=== PATIENT | female | born 1955 | race African-American/Black ===

== ENCOUNTER → 2016-05-26 | Outpatient (CLI) | payer MEDICARE, OTHER ==
[~2016-05-26] MED LIST: BEDSIDE COMMODE1 MI1; COMMODE PAIL WI1 MIS; CYCL1TAB29 PO; CYCL5TAB PO; ENAL20TA PO; HYDR-3516 PO; LORA-361 PO; METH2.5T PO; MISC-289; OMEP20TA39 PO; PRAV40TA PO; PRED5TAB PO; QUADMIS; ROUNMIS; VITA400T2 PO; WALKER WHEELS/F1 MIS; ZOLO50TA PO
[2016-05-26 14:29] LABS: AUTOMATED NEUTROPHIL # 3.4 TH/MM3 (1.8-7.7); BASOPHIL # 0.1 TH/MM3 (0-0.2); BASOPHIL % 0.9 % (0.0-2.0); EOSINOPHIL # 0.1 TH/MM3 (0-0.4); EOSINOPHIL % 2.5 % (0.0-4.0); HEMATOCRIT 37.3 % (35.0-46.0); HEMO FLAGS DIFF FINAL; LYMPH % 34.4 % (9.0-44.0); MEAN CELL VOLUME 85.1 FL (80.0-100.0); MEAN CORPUSCULAR HEMOGLOBIN 28.2 PG (27.0-34.0); MEAN CORPUSCULAR HGB CONC 33.1 % (32.0-36.0); MONO % 3.1 % (0.0-8.0); NEUT % 59.1 % (16.0-70.0); PLATELET COUNT 250 TH/MM3 (150-450); RED BLOOD COUNT 4.39 MIL/MM3 (4.00-5.30); RED CELL DISTRIBUTION WIDTH 19.7 % (11.6-17.2); WHITE BLOOD COUNT 5.8 TH/MM3 (4.0-11.0)
[2016-05-26 14:50] LABS: ALT (GPT) 41 U/L (10-53); ANION GAP 3 MEQ/L (5-15); AST (GOT) 37 U/L (15-37); BICARBONATE 33.4 MEQ/L (21.0-32.0); BLOOD UREA NITROGEN 11 MG/DL (7-18); CHLORIDE 105 MEQ/L (98-107); GLOMERULAR FILTRATION RATE 91 ML/MIN (>89); GLUCOSE,FASTING 90 MG/DL (74-99); POTASSIUM 3.8 MEQ/L (3.5-5.1); SODIUM (NA) 141 MEQ/L (136-145)
[2016-05-26 14:51] LABS: WESTERGREN SEDIMENTATION RATE 41 mm/hr (0-30)
[2016-05-26 14:52] LABS: ALKALINE PHOSPHATASE 110 U/L (45-117); TOTAL BILIRUBIN ADULT 0.3 MG/DL (0.2-1.0)
== END ==
LOC: CLAB 14:09
PROVIDERS: ATTEND Internal Medicine Rheumatology
DX: I82.409 Acute embolism and thrombosis of unspecified deep veins of unspecified lower extremity (principal); M05.79 Rheumatoid arthritis with rheumatoid factor of multiple sites without organ or systems involvement; M17.0 Bilateral primary osteoarthritis of knee; Z79.52 Long term (current) use of systemic steroids
CPT/HCPCS: 36415; 80053; 85025; 85652; 86140

== ENCOUNTER 2016-06-05 08:38 | Emergency (ER) | payer OTHER, MEDICARE ==
[~2016-06-05] VITALS: Ht 175.3 cm; Wt 101.0 kg
[~2016-06-05 08:38] MED LIST changes: -CYCL1TAB29 PO; -HYDR-3516 PO; -METH2.5T PO; -MISC-289; -PRED5TAB PO
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
[2016-06-05 08:42] VITALS: BP 161/68; PULSE 100; RESP 18; TEMP 98.2
[2016-06-05] MEDS ORDERED: SODIUM CHLORIDE 0.9% FLUSH 5 ML FLUSH IVF PRN (08:45)
[2016-06-05] MEDS ORDERED: MORPHINE SULFATE 4 MG/ML INJ IV ONE (08:45)
[2016-06-05] MEDS ORDERED: ONDANSETRON HCL 4 MG/2 ML VIAL IV PUSH ONE (08:45)
[2016-06-05 08:51] VITALS: O2SAT 100
[2016-06-05 09:00] VITALS: BP 128/58; PULSE 101; RESP 21; TEMP 98; O2SAT 100
[2016-06-05 09:28] LABS: AUTOMATED NEUTROPHIL # 3.7 TH/MM3 (1.8-7.7); BASOPHIL % 0.6 % (0.0-2.0); EOSINOPHIL # 0.2 TH/MM3 (0-0.4); EOSINOPHIL % 2.8 % (0.0-4.0); HEMATOCRIT 36.2 % (35.0-46.0); HEMO FLAGS DIFF FINAL; LYMPH % 37.7 % (9.0-44.0); LYMPHOCYTE # 2.6 TH/MM3 (1.0-4.8); MEAN CELL VOLUME 86.5 FL (80.0-100.0); MEAN CORPUSCULAR HGB CONC 33.6 % (32.0-36.0); MONO % 4.6 % (0.0-8.0); NEUT % 54.3 % (16.0-70.0); PLATELET COUNT 214 TH/MM3 (150-450); RED BLOOD COUNT 4.18 MIL/MM3 (4.00-5.30); RED CELL DISTRIBUTION WIDTH 18.9 % (11.6-17.2); WHITE BLOOD COUNT 6.8 TH/MM3 (4.0-11.0)
[2016-06-05 09:47] LABS: APTT (PATIENT) 24.8 SEC (24.3-30.1); INTERNATIONAL NORMALIZED RATIO 0.9 RATIO; PROTHROMBIN TIME - PATIENT 10.3 SEC (9.8-11.6)
[2016-06-05 09:55] LABS: BICARBONATE 31.3 MEQ/L (21.0-32.0); POTASSIUM 3.5 MEQ/L (3.5-5.1)
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
[2016-06-05] MEDS ORDERED: IOHEXOL 350 MG/ML 10 ML VIAL (for RAD DIAG) IV ONE (10:41)
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
[2016-06-05] MEDS ORDERED: MORPHINE SULFATE 4 MG/ML INJ IV PUSH ONE (11:30)
[2016-06-07] MEDS ORDERED: HYDR-3516 PO (15:36)
[2016-06-07] MEDS ORDERED: CYCL1TAB29 PO (15:36)
[2016-06-07] MEDS ORDERED: MISC-289 ×2 (15:37→15:38)
[2016-06-07] MEDS ORDERED: LORA-361 PO (15:39)
[2016-06-07] MEDS ORDERED: CYCL5TAB PO (15:39)
[2016-06-07] MEDS ORDERED: PRED5TAB PO (15:52)
[2016-06-07] MEDS ORDERED: METH2.5T PO (15:52)
== END 2016-06-05 13:04 | disposition home or self-care (01) ==
LOC: NEPE 08:38
DX: S13.4XXA Sprain of ligaments of cervical spine, initial encounter (principal); V43.52XA Car driver injured in collision with other type car in traffic accident, initial encounter; Y93.9 Activity, unspecified; Y92.9 Unspecified place or not applicable; Y99.9 Unspecified external cause status
CPT/HCPCS: 70450; 71260; 72125; 74177; 80048; 85025; 85610; 85730; 86850; 86900; 86901; 96374; 96375; 96376; 99284; J2270; J2405; Q9967

== ENCOUNTER → 2016-08-19 | Outpatient (CLI) | payer MEDICARE, OTHER ==
[~2016-08-19] MED LIST changes: +CYCL1TAB29 PO; +HYDR-3516 PO; +METH2.5T PO; +MISC-289; +PRED5TAB PO
[2016-08-19 11:53] LABS: AUTOMATED NEUTROPHIL # 2.8 TH/MM3 (1.8-7.7); BASOPHIL % 0.8 % (0.0-2.0); EOSINOPHIL # 0.1 TH/MM3 (0-0.4); EOSINOPHIL % 2.6 % (0.0-4.0); HEMATOCRIT 38.2 % (35.0-46.0); HEMO FLAGS DIFF FINAL; LYMPH % 37.4 % (9.0-44.0); LYMPHOCYTE # 2.1 TH/MM3 (1.0-4.8); MEAN CELL VOLUME 92.2 FL (80.0-100.0); MEAN CORPUSCULAR HEMOGLOBIN 30.5 PG (27.0-34.0); NEUT % 51.2 % (16.0-70.0); PLATELET COUNT 278 TH/MM3 (150-450); RED BLOOD COUNT 4.14 MIL/MM3 (4.00-5.30); RED CELL DISTRIBUTION WIDTH 18.6 % (11.6-17.2); WHITE BLOOD COUNT 5.6 TH/MM3 (4.0-11.0)
[2016-08-19 12:19] LABS: RHEUMATOID FACTOR TRIGGER 29.3 IU/ML (0.0-14.9)
[2016-08-19 12:30] LABS: BLOOD, URINE NEG (NEG); COMMENT (UR) CULT NOT INDICATED; CULTURE IF INDICATED CULT NOT INDICATED; GLUCOSE,URINE NEG (NEG); KETONE, URINE NEG (NEG); NITRITE,URINE NEG (NEG); SQUAMOUS EPITHELIAL CELL URINE 1 /hpf (0-5); URINE COLOR YELLOW (YELLW/STRAW)
[2016-08-19 12:44] LABS: BLOOD UREA NITROGEN 13 MG/DL (7-18)
[2016-08-19 12:45] LABS: ALKALINE PHOSPHATASE 114 U/L (45-117); ALT (GPT) 36 U/L (10-53); ANION GAP 5 MEQ/L (5-15); AST (GOT) 28 U/L (15-37); BICARBONATE 31.8 MEQ/L (21.0-32.0); CHLORIDE 102 MEQ/L (98-107); GLOMERULAR FILTRATION RATE 95 ML/MIN (>89); GLUCOSE,FASTING 78 MG/DL (74-99); HDL CHOLESTEROL 95.7 MG/DL (40.0-60.0); LDL CHOLESTEROL 162 MG/DL (0-99); POTASSIUM 3.5 MEQ/L (3.5-5.1); SODIUM (NA) 139 MEQ/L (136-145); TOTAL BILIRUBIN ADULT 0.4 MG/DL (0.2-1.0)
[2016-08-19 12:58] LABS: MICRO ALBUMIN RANDOM URINE RAW 8.5 MG/L (0.0-30.0)
[2016-08-23 13:01] LABS: MITOGEN MINUS NIL RESULT >10.00 IU/mL (()); NIL RESULT 0.04 IU/mL (()); QUANTIFERON TB GOLD RESULT Negative (Negative)
== END ==
LOC: CLAB 10:59
PROVIDERS: ATTEND Family Medicine
DX: I10 Essential (primary) hypertension (principal); M06.9 Rheumatoid arthritis, unspecified; M25.512 Pain in left shoulder; E78.5 Hyperlipidemia, unspecified; E55.9 Vitamin D deficiency, unspecified
CPT/HCPCS: 36415; 80053; 80061; 81001; 82043; 82306; 82607; 82746; 84443; 84550; 85025; 86200; 86430; 86480

== ENCOUNTER 2017-02-15 14:04 | Emergency (ER) | payer MEDICARE, MEDICAID ==
[~2017-02-15] VITALS: Ht 175.3 cm; Wt 110.0 kg
[2017-02-15 14:30] VITALS: BP 128/58; PULSE 100; RESP 18; TEMP 98.7; O2SAT 100
[2017-02-15] MEDS ORDERED: FOLI800T PO (15:19)
[2017-02-15] MEDS ORDERED: ALLE10TA PO (15:23)
[2017-02-15] MEDS ORDERED: IBUPROFEN 600 MG TAB PO ONE (16:15)
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
[2017-02-15] MEDS ORDERED: IBUP-232 PO (17:42)
== END 2017-02-15 18:14 | disposition home or self-care (01) ==
LOC: PHED 14:04 → PHEFT 18:14
DX: S80.11XA Contusion of right lower leg, initial encounter (principal); S81.811A Laceration without foreign body, right lower leg, initial encounter; W22.03XA Walked into furniture, initial encounter
CPT/HCPCS: 73590; 99283

== ENCOUNTER → 2017-07-21 | Outpatient (CLI) | payer MEDICARE, MEDICAID ==
[~2017-07-21] MED LIST changes: -BEDSIDE COMMODE1 MI1; -COMMODE PAIL WI1 MIS; +CYCL10TA PO; -CYCL1TAB29 PO; -CYCL5TAB PO; +FOLI800T PO; -HYDR-3516 PO; +IBUP-232 PO; -LORA-361 PO; +LORA-650 PO; -MISC-289; +OMEP20TA30 PO; -OMEP20TA39 PO; -QUADMIS; -ROUNMIS; -VITA400T2 PO; -WALKER WHEELS/F1 MIS
[2017-07-21 11:50] LABS: AUTOMATED NEUTROPHIL # 2.6 TH/MM3 (1.8-7.7); BASOPHIL % 0.6 % (0.0-2.0); EOSINOPHIL # 0.1 TH/MM3 (0-0.4); EOSINOPHIL % 2.2 % (0.0-4.0); HEMOGLOBIN 11.9 GM/DL (11.6-15.3); LYMPH % 35.8 % (9.0-44.0); LYMPHOCYTE # 1.7 TH/MM3 (1.0-4.8); MEAN CORPUSCULAR HEMOGLOBIN 29.9 PG (27.0-34.0); MEAN CORPUSCULAR HGB CONC 32.1 % (32.0-36.0); MEAN PLATELET VOLUME 7.4 FL (7.0-11.0); MONO % 6.3 % (0.0-8.0); MONOCYTE # 0.3 TH/MM3 (0-0.9); NEUT % 55.1 % (16.0-70.0); PLATELET COUNT 268 TH/MM3 (150-450); RED BLOOD COUNT 3.98 MIL/MM3 (4.00-5.30); RED CELL DISTRIBUTION WIDTH 14.8 % (11.6-17.2); WHITE BLOOD COUNT 4.7 TH/MM3 (4.0-11.0)
[2017-07-21 12:09] LABS: RHEUMATOID FACTOR SCREEN POSITIVE (NEGATIVE)
[2017-07-21 12:11] LABS: ALBUMIN 3.3 GM/DL (3.4-5.0); AST (GOT) 24 U/L (15-37); BICARBONATE 31.5 MEQ/L (21.0-32.0); BLOOD UREA NITROGEN 9 MG/DL (7-18); CALCIUM 8.7 MG/DL (8.5-10.1); CHLORIDE 104 MEQ/L (98-107); CREATININE 0.77 MG/DL (0.50-1.00); GLOMERULAR FILTRATION RATE 92 ML/MIN (>89); GLUCOSE,FASTING 93 MG/DL (74-99); SODIUM (NA) 141 MEQ/L (136-145)
[2017-07-21 12:12] LABS: CHOLESTEROL 175 MG/DL (120-200); TRIGLYCERIDES 112 MG/DL (42-150)
[2017-07-21 12:17] LABS: BACTERIA, URINE OCC /hpf; BILIRUBIN, URINE NEG (NEG); BLOOD, URINE TRACE (NEG); GLUCOSE,URINE NEG (NEG); KETONE, URINE NEG (NEG); MUCUS URINE FEW /lpf (OCC); NITRITE,URINE NEG (NEG); PH, URINE 5.5 (5.0-8.5); SQUAMOUS EPITHELIAL CELL URINE 18 /hpf (0-5); TRICHOMONAS, URINE RARE; URINE COLOR YELLOW (YELLW/STRAW); URINE LEUKOCYTE ESTERASE LARGE (NEG)
[2017-07-21 12:39] LABS: ALKALINE PHOSPHATASE 139 U/L (45-117); ALT (GPT) 26 U/L (10-53); CHOLESTEROL/ HDL RATIO 3.01 RATIO; HDL CHOLESTEROL 58.1 MG/DL (40.0-60.0); LDL CHOLESTEROL 95 MG/DL (0-99); TOTAL BILIRUBIN ADULT 0.3 MG/DL (0.2-1.0); TOTAL PROTEIN 7.7 GM/DL (6.4-8.2)
== END ==
LOC: CLAB 11:04
PROVIDERS: ATTEND Family Medicine
DX: I10 Essential (primary) hypertension (principal); M06.9 Rheumatoid arthritis, unspecified; E78.5 Hyperlipidemia, unspecified; E55.9 Vitamin D deficiency, unspecified; R79.89 Other specified abnormal findings of blood chemistry; R53.83 Other fatigue
CPT/HCPCS: 36415; 80053; 80061; 81001; 82043; 82306; 82607; 84443; 85025; 86200; 86430; 87086

== ENCOUNTER → 2017-09-22 | Outpatient (CLI) | payer MEDICARE, MEDICAID ==
[2017-09-22 14:05] LABS: AUTOMATED NEUTROPHIL # 2.2 TH/MM3 (1.8-7.7); BASOPHIL % 0.6 % (0.0-2.0); EOSINOPHIL # 0.1 TH/MM3 (0-0.4); EOSINOPHIL % 3.1 % (0.0-4.0); HEMATOCRIT 37.1 % (35.0-46.0); LYMPH % 31.8 % (9.0-44.0); LYMPHOCYTE # 1.2 TH/MM3 (1.0-4.8); MEAN CELL VOLUME 90.4 FL (80.0-100.0); MEAN CORPUSCULAR HEMOGLOBIN 29.3 PG (27.0-34.0); MEAN CORPUSCULAR HGB CONC 32.4 % (32.0-36.0); MEAN PLATELET VOLUME 7.7 FL (7.0-11.0); MONO % 4.6 % (0.0-8.0); MONOCYTE # 0.2 TH/MM3 (0-0.9); NEUT % 59.9 % (16.0-70.0); PLATELET COUNT 256 TH/MM3 (150-450); RED BLOOD COUNT 4.11 MIL/MM3 (4.00-5.30); RED CELL DISTRIBUTION WIDTH 15.2 % (11.6-17.2); WHITE BLOOD COUNT 3.7 TH/MM3 (4.0-11.0)
[2017-09-22 14:17] LABS: RHEUMATOID FACTOR SCREEN POSITIVE (NEGATIVE)
[2017-09-22 14:20] LABS: ALBUMIN 3.4 GM/DL (3.4-5.0); ALT (GPT) 69 U/L (10-53); AST (GOT) 78 U/L (15-37); BICARBONATE 28.2 MEQ/L (21.0-32.0); BLOOD UREA NITROGEN 8 MG/DL (7-18); C-REACTIVE PROTEIN 0.68 MG/DL (0.00-0.30); CHLORIDE 104 MEQ/L (98-107); CREATININE 0.68 MG/DL (0.50-1.00); GLOMERULAR FILTRATION RATE 106 ML/MIN (>89); GLUCOSE,FASTING 108 MG/DL (74-99); SODIUM (NA) 142 MEQ/L (136-145)
[2017-09-22 14:22] LABS: ALKALINE PHOSPHATASE 138 U/L (45-117); TOTAL BILIRUBIN ADULT 0.4 MG/DL (0.2-1.0); TOTAL PROTEIN 7.5 GM/DL (6.4-8.2)
[2017-09-22 14:34] LABS: WESTERGREN SEDIMENTATION RATE 32 mm/hr (0-30)
[2017-09-22 16:08] LABS: AMORPHOUS SEDIMENT, URINE RARE; BACTERIA, URINE MANY /hpf; BILIRUBIN, URINE NEG (NEG); BLOOD, URINE NEG (NEG); GLUCOSE,URINE NEG (NEG); HYALINE CAST, URINE 2 /lpf (RARE); KETONE, URINE NEG (NEG); MUCUS URINE FEW /lpf (OCC); NITRITE,URINE NEG (NEG); PH, URINE 5.5 (5.0-8.5); SQUAMOUS EPITHELIAL CELL URINE 10 /hpf (0-5); URINE COLOR YELLOW (YELLW/STRAW); URINE LEUKOCYTE ESTERASE LARGE (NEG)
[2017-09-24 23:52] LABS: HEPATITIS B CORE TOTAL AB NONREACTIVE (NON-REACTVE)
[2017-09-26 16:19] LABS: MITOGEN MINUS NIL RESULT 9.77 IU/mL; NIL RESULT 0.03 IU/mL; QUANTIFERON TB GOLD + RESULT Negative (Negative); TB ANTIGEN MINUS NIL 0.01 IU/mL
== END ==
LOC: CLAB 13:04
DX: M19.90 Unspecified osteoarthritis, unspecified site (principal)
CPT/HCPCS: 36415; 80053; 81001; 85025; 85652; 86140; 86200; 86317; 86430; 86480; 86704; 86803; 87340

== ENCOUNTER 2018-04-11 12:55 | Observation (INO) ==
[2018-04-11] MEDS ORDERED: Morphine Inj 4 MG/ML Vial IV.PUSH ONE (14:04)
[2018-04-11 14:23] LABS: Baso % (Auto) 0.5 % (0.0-2.0); Eos # (Auto) 0.1 th/mm3 (0.0-0.4); Eos % (Auto) 2.2 % (0.0-4.0); Hematocrit 37.3 % (35.0-46.0); Hemoglobin 12.1 gm/dL (11.6-15.3); Lymph # (Auto) 1.3 th/mm3 (1.0-4.8); Mean Corpuscular HGB Conc 32.4 % (32.0-36.0); Mean Corpuscular Hemoglobin 28.6 pg (27.0-34.0); Mean Corpuscular Volume 88.3 fL (80.0-100.0); Mean Platelet Volume 7.3 fL (7.0-11.0); Mono # (Auto) 0.5 th/mm3 (0.0-0.9); Mono % (Auto) 10.7 % (0.0-8.0); Neut # (Auto) 2.8 th/mm3 (1.8-7.7); Neut % (Auto) 58.6 % (16.0-70.0); Platelet Count 244 th/mm3 (150-450); Red Blood Count 4.22 mil/mm3 (4.00-5.30); Red Cell Distribution Width 15.8 % (11.6-17.2); White Blood Count 4.8 th/mm3 (4.0-11.0)
--- NOTE | 2018-04-11 14:32 | ED ---
HPI General Chief Complaint: Chest Pain Stated Complaint: cardiac complaint Time Seen by Provider: 04/11/18 13:55 Source: patient, family and EMS Mode of arrival: EMS Limitations: no limitations History of Present Illness HPI narrative: Patient is a 62-year-old female presenting to the emergency department for evaluation of chest pain. Patient states it started 230 this morning, it was accompanied by shortness of breath. She states the pain lasted for 35-45 minutes. She states the pain is midsternal with radiation to the right chest wall and right arm. Pain started again at 1140 this morning, again accompanied by shortness of breath. Patient reports that she has been under increased stress lately. Patient reports her pain is 8 out of 10, aching, intermittent. No exacerbating or alleviating factors. Patient denies any nausea, vomiting, abdominal pain, dizziness, visual changes. She does report that she has been burping more frequently lately. Past medical history significant for hypertension, rheumatoid arthritis, GERD, hyperlipidemia, depression, vitamin D deficiency. Patient states she is allergic to aspirin, she states it causes abdominal pain. Related Data Home Medications Medication Instructions Recorded Confirmed cyanocobalamin (vitamin B-12) 1,000 mcg PO DAILY 04/11/18 04/11/18 [Vitamin B-12] enalapril maleate [Vasotec] 10 mg PO DAILY 04/11/18 04/11/18 ergocalciferol (vitamin D2) 50,000 unit PO QWEEK 04/11/18 04/11/18 folic acid 1 mg PO DAILY 04/11/18 04/11/18 loratadine [Claritin] 10 mg PO DAILY 04/11/18 04/11/18 omeprazole 20 mg PO BID 04/11/18 04/11/18 pravastatin 40 mg PO HS 04/11/18 04/11/18 prednisone 2.5 mg PO DAILY 04/11/18 04/11/18 sertraline [Zoloft] 50 mg PO DAILY 04/11/18 04/11/18 Allergies Allergy/AdvReac Type Severity Reaction Status Date / Time acetaminophen Allergy Severe PASSED OUT Unverified 02/15/17 15:15 hydrocodone Allergy Severe PASSED OUT Unverified 02/15/17 15:15 aspirin Allergy Flushing Verified 04/11/18 13:03 Review of Systems ROS: all other systems reviewed are negative PMFSH Medical History Medical History Back pain (Acute) Depression (Acute) GERD (gastroesophageal reflux disease) (Acute) Herpes (Acute) Hyperlipidemia (Acute) Hypertension (Acute) Rheumatoid arthritis (Acute) Vitamin D deficiency (Acute) Social History Social History Substance History: No History of Abuse Second Hand Smoke Exposure: No Smoking Status: Never smoker How Often Do You Have a Drink Containing Alcohol: Never Recent Out of Country Travel within the Last 8 Weeks: No Immunization History Tetanus Immunization: Unsure Exam Narrative Exam Narrative: GENERAL: Overweight, well-developed, alert -[place] female. Presenting in no acute distress. SKIN: Focused skin assessment warm/dry. HEAD: Atraumatic. Normocephalic. EYES: Pupils equal and round. No scleral icterus. No injection or drainage. ENT: No nasal bleeding or discharge. Mucous membranes pink and moist. NECK: Trachea midline. No JVD. CARDIOVASCULAR: Regular rate and rhythm. No murmur appreciated. RESPIRATORY: No accessory muscle use. Clear to auscultation. Breath sounds equal bilaterally. GASTROINTESTINAL: Abdomen soft, non-tender, nondistended. Hepatic and splenic margins not palpable. MUSCULOSKELETAL: No obvious deformities. No clubbing. No cyanosis. No edema. NEUROLOGICAL: Awake and alert. No obvious cranial nerve deficits. Motor grossly within normal limits. Normal speech. PSYCHIATRIC: Appropriate mood and affect; insight and judgment normal. Course Initial Documented Vital Signs Temperature 98.7 F 04/11/18 13:20 Pulse Rate 72 04/11/18 13:20 Respiratory Rate 18 04/11/18 13:20 Blood Pressure 196/81 H 04/11/18 13:20 Pulse Oximetry 100 04/11/18 13:20 Last Documented Vital Signs Temperature 98.3 F 04/11/18 13:45 Pulse Rate 69 04/11/18 15:24 Respiratory Rate 18 04/11/18 15:24 Blood Pressure 139/67 04/11/18 15:24 Pulse Oximetry 96 04/11/18 15:24 Medical Decision Making MDM Narrative Medical decision making narrative: Patient presented for evaluation of chest pain. Patient is hypertensive on arrival, she has not taken any of her normal morning medications. Labs and imaging ordered and pending. Patient was placed on O2 at 2 L, she will be given morphine and nitroglycerin paste. Initial EKG was reviewed with my attending physician, shows normal sinus rhythm. Labs reviewed, no acute findings, specifically cardiac enzymes are negative x1 set. Chest x-ray shows elected to the left lung base, cannot completely exclude consolidation however patient has no elevated white count, she is afebrile and is clinically not showing any signs of infection. Discussed with my attending physician. Patient was placed in chest pain center to have enzymes trended, serial EKGs and possible stress test. Patient is agreeable to stay. She is currently resting comfortably with her family at bedside. Her blood pressure had trended down, she has Nitropaste to her anterior chest wall. Medical Screen Exam Complete: Yes Emergency Medical Condition: Yes Differential Diagnosis Differential Diagnosis: ACS vs USA vs GERD vs metabolic abnormality vs arrythmia vs anxiety vs other Medical Records Medical records reviewed: Yes I reviewed the patient's medical records. Lab Data Result diagrams: 04/11/18 14:05 04/11/18 14:05 Lab Results 04/11/18 04/11/18 04/11/18 Range/Units 14:05 14:05 14:05 WBC 4.8 (4.0-11.0) th/mm3 RBC 4.22 (4.00-5.30) mil/mm3 Hgb 12.1 (11.6-15.3) gm/dL Hct 37.3 (35.0-46.0) % MCV 88.3 (80.0-100.0) fL MCH 28.6 (27.0-34.0) pg MCHC 32.4 (32.0-36.0) % RDW 15.8 (11.6-17.2) % Plt Count 244 (150-450) th/mm3 MPV 7.3 (7.0-11.0) fL Neut % (Auto) 58.6 (16.0-70.0) % Lymph % (Auto) 28.0 (9.0-44.0) % [place] % (Auto) 10.7 H (0.0-8.0) % Eos % (Auto) 2.2 (0.0-4.0) % Baso % (Auto) 0.5 (0.0-2.0) % Neut # (Auto) 2.8 (1.8-7.7) th/mm3 Lymph # (Auto) 1.3 (1.0-4.8) th/mm3 [place] # (Auto) 0.5 (0.0-0.9) th/mm3 Eos # (Auto) 0.1 (0.0-0.4) th/mm3 Baso # (Auto) 0.0 (0.0-0.2) th/mm3 WBC Differential . Differential Comment Auto diff final PT 10.3 (9.8-11.6) sec INR 1.0 Ratio APTT 27.3 (23.4-31.7) sec Sodium 143 (136-145) meq/L Potassium 3.6 (3.5-5.1) meq/L Chloride 107 (98-107) meq/L Carbon Dioxide 30.0 (21.0-32.0) meq/L Anion Gap 6 (5-15) meq/L BUN 8 (7-18) mg/dL Creatinine 0.68 (0.50-1.00) mg/dL Estimated GFR Greater than 89 (>89) mL/min Random Glucose 96 (74-106) mg/dL Calcium 9.3 (8.5-10.1) mg/dL Magnesium (1.5-2.5) mg/dL Total Bilirubin 0.3 (0.2-1.0) mg/dL AST 28 (15-37) U/L ALT 28 (10-53) U/L Alkaline Phosphatase 127 H (45-117) U/L Total Creatine Kinase 71 (26-192) U/L Troponin I Less than 0.02 L (0.02-0.05) ng/mL Total Protein 8.6 H (6.4-8.2) g/dL Albumin 3.5 (3.4-5.0) g/dL Lipase 147 (73-393) U/L /18/18 Range/Units 14:05 WBC (4.0-11.0) th/mm3 RBC (4.00-5.30) mil/mm3 Hgb (11.6-15.3) gm/dL Hct (35.0-46.0) % MCV (80.0-100.0) fL MCH (27.0-34.0) pg MCHC (32.0-36.0) % RDW (11.6-17.2) % Plt Count (150-450) th/mm3 MPV (7.0-11.0) fL Neut % (Auto) (16.0-70.0) % Lymph % (Auto) (9.0-44.0) % [place] % (Auto) (0.0-8.0) % Eos % (Auto) (0.0-4.0) % Baso % (Auto) (0.0-2.0) % Neut # (Auto) (1.8-7.7) th/mm3 Lymph # (Auto) (1.0-4.8) th/mm3 [place] # (Auto) (0.0-0.9) th/mm3 Eos # (Auto) (0.0-0.4) th/mm3 Baso # (Auto) (0.0-0.2) th/mm3 WBC Differential Differential Comment PT (9.8-11.6) sec INR Ratio APTT (23.4-31.7) sec Sodium (136-145) meq/L Potassium (3.5-5.1) meq/L Chloride (98-107) meq/L Carbon Dioxide (21.0-32.0) meq/L Anion Gap (5-15) meq/L BUN (7-18) mg/dL Creatinine (0.50-1.00) mg/dL Estimated GFR (>89) mL/min Random Glucose (74-106) mg/dL Calcium (8.5-10.1) mg/dL Magnesium 1.9 (1.5-2.5) mg/dL Total Bilirubin (0.2-1.0) mg/dL AST (15-37) U/L ALT (10-53) U/L Alkaline Phosphatase (45-117) U/L Total Creatine Kinase (26-192) U/L Troponin I (0.02-0.05) ng/mL Total Protein (6.4-8.2) g/dL Albumin (3.4-5.0) g/dL Lipase (73-393) U/L Imaging Data Radiologist's impression: Chest X-Ray 04/11/18 14:04 CONCLUSION: Underinflation with mild opacity at the left base that is favored to represent subsegmental atelectasis and density relating to overlying soft tissues. However , cannot confidently exclude mild airspace consolidation. Good inspiratory formal PA and lateral views of the chest could help differentiate, if needed clinically. Discharge Plan Discharge Disposition Patient Disposition: ED Admit(ED Internal Use Only) Discharge Condition Condition: Stable Discharge Order Discharge Orders: ED Use Only Admit Order (Routine); Ordered 04/11/18 Ordered By: Teodora Hale Discharge Details Diagnosis: Chest pain Physicians Team ED Provider: Rosalinda Zendejas ED Midlevel Provider: Teodora Hale Primary Care Provider: Som Shah III Attending Provider: Sabiha Hines Status ED Status: Admitted Observation Patient
[2018-04-11 14:43] LABS: Activated Partial Thrombo Time 27.3 sec (23.4-31.7); Prothrombin Time 10.3 sec (9.8-11.6)
[2018-04-11 14:48] LABS: Alanine Aminotransferase 28 U/L (10-53); Albumin 3.5 g/dL (3.4-5.0); Anion Gap 6 meq/L (5-15); Aspartate Aminotransferase 28 U/L (15-37); Blood Urea Nitrogen 8 mg/dL (7-18); Calcium 9.3 mg/dL (8.5-10.1); Chloride 107 meq/L (98-107); Glomerular Filtration Rate Greater Than 89 mL/min (>89); Glucose,Random 96 mg/dL (74-106); Lipase 147 U/L (73-393); Potassium 3.6 meq/L (3.5-5.1); Sodium 143 meq/L (136-145)
[2018-04-11 14:53] LABS: Alkaline Phosphatase 127 U/L (45-117); Total Protein 8.6 g/dL (6.4-8.2)
--- NOTE | 2018-04-11 14:53 | XR ---
EXAM DATE: 04/11/2018 2:33 PM EST AGE/SEX: 62 years / Female INDICATIONS: Chest pain and shortness of breath since 2am this morning CLINICAL DATA: This is the patient's initial encounter. Patient reports that signs and symptoms have been present for 1 day and indicates a pain score of Nonresponsive. MEDICAL/SURGICAL HISTORY: Hypertension. arthritis section. [place] [facility] [place]. . FINDINGS: Portable AP view of the chest demonstrates a normal-sized cardiac silhouette. Lungs are mildly underi nflated with mild subsegmental atelectasis at the right lung base. There is mild hazy increased opaci ty at the left lower lung zone with partial obscuration the left hemidiaphragm. No pleural effusion o r pneumothorax is identified. Bones and soft tissues demonstrate no acute finding. CONCLUSION: Underinflation with mild opacity at the left base that is favored to represent subsegmental atelectas is and density relating to overlying soft tissues. However, cannot confidently exclude mild airspace consolidation. Good inspiratory formal PA and lateral views of the chest could help differentiate, if needed clinically. Electronically signed by: Hamilton Lopez MD Board Certified Radiologist 04/11/2018 2:52 PM EST
[2018-04-11 15:01] LABS: Creatine Kinase 71 U/L (26-192)
--- NOTE | 2018-04-11 16:48 | P.HPCA ---
History of Present Illness Primary Care Physician: Som Shah III, MD Chief Complaint: Chest pain History of Present Illness: This is a 62-year-old female with history of hypertension, hyperlipidemia, rheumatoid arthritis, and GERD that presents to ED via private vehicle with her family with complaint of chest discomfort he states that she was already awake when it began. It started around 230 this morning. Right-sided. Sharp pain. Lasted 30-45 minutes. Rated as 8 out of 10. Denies shortness of breath. Denies nausea or vomiting. Denies diaphoresis. States she has cardiac evaluations in the past. Last stress test here was a Lexiscan in 2013 that was nonischemic. She believes she had a another stress test at [facility] either 2016 or 2017 that was normal. States is never had a cardiac catheterization. Patient has history of rheumatoid arthritis. She has been running out of her prednisone which she should be taking daily but states that her PCP would not refill it as she is about to have a new PCP. So she has recently been trying to stretch out the remaining prednisone that she has, she has not been taking it daily. She did not take her blood pressure medicine this morning. History of rheumatoid arthritis, hypertension, and hyperlipidemia. Denies diabetes and CAD. Patient denies allergy to Tylenol or 2 hydrocodone. States aspirin causes GI upset. She states that her mother had some form of heart issues really is not sure. Mother lived to be 85. She is a non-smoker. - Diagnosis (1) Chest pain (2) Hypertension (3) Hyperlipidemia (4) Rheumatoid arthritis Review of Systems General: Patient denies fevers, chills, and recent travel. HEENT: Patient denies headache, sore throat, difficulty swallowing. Cardiovascular: Has the chest discomfort as mentioned above. Denies sensation of heart beating rapidly or irregularly. No syncope. Denies diaphoresis. Respiratory: Denies shortness of breath or inspirational chest discomfort. Denies coughing wheezing or hemoptysis. GI: Patient denies nausea, vomiting, diarrhea, abdominal pain, bloody stools. Musculoskeletal: Chronic joint pain. Patient denies joint pain. Denies calf pain or edema. Neurovascular: Patient denies numbness, tingling, weakness in extremities. Denies headache. Endocrine: Denies polyuria and polydipsia. Hematologic: Denies easy bruising. Skin: Denies rash or itching. PMFSH - History History Provided By: Patient - Medical History Medical History: Medical History (Last Reviewed 04/11/18 @ 14:31 by PROSPER Bradley) Back pain Depression GERD (gastroesophageal reflux disease) Herpes Hyperlipidemia Hypertension Rheumatoid arthritis Vitamin D deficiency - Tobacco History Second Hand Smoke Exposure: No Smoking Status: Never smoker - Alcohol History How Often Do You Have a Drink Containing Alcohol: Never - Substance Use History Substance History: No History of Abuse - Travel History Recent Travel Out of the Country Within the Last 8 Weeks: No - Immunization History Tetanus Immunization: Unsure Medications and Allergies Active Medications: Active Medications Sodium Chloride (Ns Flush) 2 ml IV.FLUSH UNSCH PRN PRN Reason: FLUSH AFTER USING IV ACCESS Allergies Allergy/AdvReac Type Severity Reaction Status Date / Time acetaminophen Allergy Severe PASSED OUT Unverified 02/15/17 15:15 hydrocodone Allergy Severe PASSED OUT Unverified 02/15/17 15:15 aspirin Allergy Flushing Verified 04/11/18 13:03 Home Medications Medication Instructions Recorded Confirmed Type cyanocobalamin (vitamin B-12) 1,000 mcg PO DAILY 04/11/18 04/11/18 History [Vitamin B-12] enalapril maleate [Vasotec] 10 mg PO DAILY 04/11/18 04/11/18 History ergocalciferol (vitamin D2) 50,000 unit PO QWEEK 04/11/18 04/11/18 History folic acid 1 mg PO DAILY 04/11/18 04/11/18 History loratadine [Claritin] 10 mg PO DAILY 04/11/18 04/11/18 History omeprazole 20 mg PO BID 04/11/18 04/11/18 History pravastatin 40 mg PO HS 04/11/18 04/11/18 History prednisone 2.5 mg PO DAILY 04/11/18 04/11/18 History sertraline [Zoloft] 50 mg PO DAILY 04/11/18 04/11/18 History Exam Vital signs: Vital Signs 04/11/18 13:20 04/11/18 13:43 04/11/18 13:45 Temperature 98.7 F 98.7 F 98.3 F Pulse Rate 72 72 72 Respiratory Rate 18 19 19 Blood Pressure 196/81 H 196/81 H 196/81 H Pulse Oximetry 100 100 100 04/11/18 15:24 Temperature Pulse Rate 69 Respiratory Rate 18 Blood Pressure 139/67 Pulse Oximetry 96 Intake & Output 04/10/18 04/11/18 04/11/18 18:59 06:59 18:59 Weight 90.718 kg Narrative: GENERAL: This is a well-nourished, well-developed patient, in no apparent distress. Patient speaks in clear complete sentences. Patient is pleasant. HEENT: Head is atraumatic and normocephalic. Neck is supple without lymphadenopathy and trachea is midline. No JVD or carotid bruits. CARDIOVASCULAR: Regular rate and rhythm without murmurs, gallops, or rubs. RESPIRATORY: Clear to auscultation. Breath sounds equal bilaterally. No wheezes , rales, or rhonchi. Right chest wall is very tender to palpate and is worsened with movement of the torso. This reproduces the discomfort that she had. No use of accessory muscles. GASTROINTESTINAL: Abdomen is nontender, nondistended. Abdomen soft. No obvious pulsatile mass or bruit. No CVA tenderness. Strong femoral pulses bilaterally. Normal bowel sounds in all quadrants. MUSCULOSKELETAL: Patient is moving upper and lower extremities freely. No calf tenderness or edema, no Homans sign. Strong pulses in upper and lower extremities. NEUROLOGICAL: Patient is alert and oriented. Cranial nerves 2-12 are grossly intact. No focal deficits and speech is clear. SKIN: No rash and turgor is normal. Results 04/11/18 14:05 04/11/18 14:05 Cardiac Enzymes 04/11/18 Range/Units 14:05 AST 28 (15-37) U/L Troponin I Less than 0.02 L (0.02-0.05) ng/mL Coagulation 04/11/18 Range/Units 14:05 PT 10.3 (9.8-11.6) sec APTT 27.3 (23.4-31.7) sec CBC 04/11/18 Range/Units 14:05 WBC 4.8 (4.0-11.0) th/mm3 RBC 4.22 (4.00-5.30) mil/mm3 Hgb 12.1 (11.6-15.3) gm/dL Hct 37.3 (35.0-46.0) % Plt Count 244 (150-450) th/mm3 Neut # (Auto) 2.8 (1.8-7.7) th/mm3 Lymph # (Auto) 1.3 (1.0-4.8) th/mm3 [place] # (Auto) 0.5 (0.0-0.9) th/mm3 Eos # (Auto) 0.1 (0.0-0.4) th/mm3 Baso # (Auto) 0.0 (0.0-0.2) th/mm3 Comprehensive Metabolic Panel 04/11/18 Range/Units 14:05 Sodium 143 (136-145) meq/L Potassium 3.6 (3.5-5.1) meq/L Chloride 107 (98-107) meq/L Carbon Dioxide 30.0 (21.0-32.0) meq/L BUN 8 (7-18) mg/dL Creatinine 0.68 (0.50-1.00) mg/dL Calcium 9.3 (8.5-10.1) mg/dL AST 28 (15-37) U/L ALT 28 (10-53) U/L Alkaline Phosphatase 127 H (45-117) U/L Total Protein 8.6 H (6.4-8.2) g/dL Albumin 3.5 (3.4-5.0) g/dL Intake and Output 04/11/18 04/11/18 04/11/18 06:59 14:59 22:59 Other: Weight 90.718 kg Patient Weight 04/12/18 06:59 Weight 90.718 kg - Imaging and Cardiology Imaging: Impressions Chest X-Ray 04/11/18 14:04 CONCLUSION: Underinflation with mild opacity at the left base that is favored to represent subsegmental atelectasis and density relating to overlying soft tissues. However , cannot confidently exclude mild airspace consolidation. Good inspiratory formal PA and lateral views of the chest could help differentiate, if needed clinically. EKG interpretations - EKG EKG shows: sinus rhythm (Initial EKG is sinus rhythm rate of [address] segment depressions or elevations.) Caprini VTE Risk Assessment Caprini VTE Risk Assessment: Moderate/High Risk (score >= 2) Caprini Risk Assessment Model: Point Value = 1 Point Value = 2 Point Value = 3 Point Value = 5 Age 41-60 Minor surgery BMI > 25 kg/m2 Swollen legs Varicose veins or History of unexplained or recurrent spontaneous Oral contraceptives or hormone replacement Sepsis (< 1 month) Serious lung disease, including pneumonia (< 1 month) Abnormal pulmonary function Acute myocardial infarction Congestive heart failure (< 1 month) History of inflammatory bowel disease Medical patient at bed rest Age 61-74 Arthroscopic surgery Major open surgery (> 45 min) Laparoscopic surgery (> 45 min) Malignancy Confined to bed (> 72 hours) Immobilizing plaster cast Central venous access Age >= 75 History of VTE Family history of VTE Factor V Leiden Prothrombin [id number] Lupus anticoagulant Anticardiolipin antibodies Elevated serum homocysteine Heparin-induced thrombocytopenia Other congenital or acquired thrombophilia Stroke (< 1 month) Elective arthroplasty Hip, pelvis, or leg fracture Acute spinal cord injury (< 1 month) Prophylaxis Regimen: Total Risk Factor Score Risk Level Prophylaxis Regimen 0-1 Low Early ambulation 2 Moderate Order ONE of the following: *Sequential Compression Device (SCD) *Heparin 5000 units SQ BID 3-4 Higher Order ONE of the following medications: *Heparin 5000 units SQ TID *Enoxaparin/Lovenox 40 mg SQ daily (WT < 150 kg, CrCl > 30 mL/min) *Enoxaparin/Lovenox 30 mg SQ daily (WT < 150 kg, CrCl > 10-29 mL/min) *Enoxaparin/Lovenox 30 mg SQ BID (WT < 150 kg, CrCl > 30 mL/min) AND/OR *Sequential Compression Device (SCD) 5 or more Highest Order ONE of the following medications: *Heparin 5000 units SQ TID (Preferred with Epidurals) *Enoxaparin/Lovenox 40 mg SQ daily (WT < 150 kg, CrCl > 30 mL/min) *Enoxaparin/Lovenox 30 mg SQ daily (WT < 150 kg, CrCl > 10-29 mL/min) *Enoxaparin/Lovenox 30 mg SQ BID (WT < 150 kg, CrCl > 30 mL/min) AND *Sequential Compression Device (SCD) Assessment and Plan - Assessment (1) Chest pain Code(s): R07.9 - Chest pain, unspecified Status: Acute (2) Hypertension Code(s): I10 - Essential (primary) hypertension Status: Acute (3) Hyperlipidemia Code(s): E78.5 - Hyperlipidemia, unspecified Status: Acute (4) Rheumatoid arthritis Code(s): M06.9 - Rheumatoid arthritis, unspecified Status: Acute - Plan * Chest pain: Patient will continue to have serial cardiac enzymes and EKGs for ruling out purposes. She will be seen by Dr. Hines of cardiology and the chest pain center. Symptoms seem atypical. However she does have risk factors , patient likely to have stress test in the morning which would be a Lexiscan as she would not build walk on a treadmill. She would be discharged home if her stress test is nonischemic with instructions to follow-up with her PCP. * Hypertension: Patient did not take her medicine this morning. This will be restarted. * Hyperlipidemia: Continue medication. * Rheumatoid arthritis: Patient advised to follow-up with PCP to be restarted on medication for rheumatoid arthritis. She may need follow-up with a die operator. Patient is stable at this time. She is agreeable to this plan. (1) Chest pain Qualifiers: Chest pain type: unspecified Qualified Code(s): R07.9 - Chest pain, unspecified
--- NOTE | 2018-04-11 17:56 | XR ---
EXAM DATE: 04/11/2018 5:53 PM EST AGE/SEX: 62 years / Female INDICATIONS: . Chest pain. CLINICAL DATA: This is the patient's subsequent encounter. Patient reports that signs and symptoms h ave been present for 1 day and indicates a pain score of 4/10. MEDICAL/SURGICAL HISTORY: . Hypertension. Arthritis. . section. COMPARISON: No prior exams available for comparison. FINDINGS: AP and lateral views of the chest demonstrate the lungs to be symmetrically aerated without evidence of mass, infiltrate or effusion. The cardiomediastinal contours are unremarkable. Osseous structure s are intact. CONCLUSION: No acute cardiopulmonary disease. Electronically signed by: Tristin Saeed MD Board Certified Radiologist 04/11/2018 5:55 PM EST
[2018-04-11] MEDS: Acetaminophen 500 MG Tablet PO PRN (20:27)
[2018-04-11 21:14] LABS: Creatine Kinase 74 U/L (26-192)
[2018-04-11 23:49] LABS: Creatine Kinase 64 U/L (26-192)
[2018-04-12 00:11] VITALS: RESP 16
[2018-04-12] MEDS: Acetaminophen 500 MG Tablet PO PRN (05:59)
--- NOTE | 2018-04-12 08:21 | P.PNCA ---
Subjective Interval history: No further chest pain. Offers no complaints. Medications and Allergies Active Medications: Active Medications Acetaminophen (Tylenol) 500 mg PO Q6H PRN PRN Reason: pain scale 1-5 Last Admin: 04/12/18 05:59 Dose: 500 mg Hydrocodone Bitart/Acetaminophen ([place] 7.5/325) 1 tab PO Q6H PRN PRN Reason: pain scale 6-10 Clonidine HCl (Catapres) 0.1 mg PO Q6H PRN PRN Reason: SBP >165 OR DBP > 110 Enalapril Maleate (Vasotec) 10 mg PO DAILY [facility] Last Admin: 04/11/18 18:12 Dose: 10 mg Folic Acid (Folic Acid) 1 mg PO DAILY [facility] Loratadine (Claritin) 10 mg PO DAILY [facility] Ondansetron HCl (Zofran Inj) 4 mg IV.PUSH Q6H PRN PRN Reason: NAUSEA Pantoprazole Sodium (Protonix) 40 mg PO DAILY [facility] Last Admin: 04/11/18 18:12 Dose: 40 mg Pravastatin Sodium (Pravachol) 40 mg PO HS [facility] Last Admin: 04/11/18 20:27 Dose: 40 mg Prednisone (Deltasone) 2.5 mg PO DAILY [facility] Sertraline HCl (Zoloft) 50 mg PO DAILY [facility] Sodium Chloride (Ns Flush) 2 ml IV.FLUSH BID [facility] Last Admin: 04/11/18 20:27 Dose: 2 ml Sodium Chloride (Ns Flush) 2 ml IV.FLUSH PRN PRN PRN Reason: FLUSH AFTER USING IV ACCESS Allergies Allergy/AdvReac Type Severity Reaction Status Date / Time acetaminophen Allergy Severe PASSED OUT Unverified 02/15/17 15:15 hydrocodone Allergy Severe PASSED OUT Unverified 02/15/17 15:15 aspirin Allergy Flushing Verified 04/11/18 13:03 Home Medications Medication Instructions Recorded Confirmed Type cyanocobalamin (vitamin B-12) 1,000 mcg PO DAILY 04/11/18 04/11/18 History [Vitamin B-12] enalapril maleate [Vasotec] 10 mg PO DAILY 04/11/18 04/11/18 History ergocalciferol (vitamin D2) 50,000 unit PO QWEEK 04/11/18 04/11/18 History folic acid 1 mg PO DAILY 04/11/18 04/11/18 History loratadine [Claritin] 10 mg PO DAILY 04/11/18 04/11/18 History omeprazole 20 mg PO BID 04/11/18 04/11/18 History pravastatin 40 mg PO HS 04/11/18 04/11/18 History prednisone 2.5 mg PO DAILY 04/11/18 04/11/18 History sertraline [Zoloft] 50 mg PO DAILY 04/11/18 04/11/18 History Physical Exam Vital signs: Vital Signs 04/11/18 13:20 04/11/18 13:43 04/11/18 13:45 Temperature 98.7 F 98.7 F 98.3 F Pulse Rate 72 72 72 Respiratory Rate 18 19 19 Blood Pressure 196/81 H 196/81 H 196/81 H Pulse Oximetry 100 100 100 04/11/18 15:24 04/11/18 17:49 04/11/18 20:00 Temperature 97.7 F 98.4 F Pulse Rate 69 78 87 Respiratory Rate 18 16 14 Blood Pressure 139/67 134/66 119/55 L Pulse Oximetry 96 98 99 04/11/18 21:00 04/11/18 21:01 04/12/18 00:00 Temperature 98.3 F Pulse Rate 84 77 Respiratory Rate 18 16 Blood Pressure 122/59 L Pulse Oximetry 99 04/12/18 04:00 Temperature 98.0 F Pulse Rate 77 Respiratory Rate 16 Blood Pressure 107/55 L Pulse Oximetry 97 Intake & Output 04/11/18 04/12/18 04/12/18 18:59 06:59 18:59 Weight 90.718 kg Other: # Voids 3 Narrative: Obese, -[place] female easily awakens from sleep. In no acute distress. - Constitutional no acute distress, obese, cooperative - Routine HEENT Exam Head: Present: normocephalic, atraumatic - Routine Respiratory Exam Present: CTA bilaterally - Routine Cardiovascular Exam Present: RRR. Absent: murmur, gallop, rubs Results 04/11/18 14:05 04/11/18 14:05 Cardiac Enzymes 04/11/18 04/11/18 04/11/18 Range/Units 14:05 20:23 23:21 AST 28 (15-37) U/L Troponin I Less than 0.02 L Less than 0.02 L Less than 0.02 L (0.02-0.05) ng/mL Coagulation 04/11/18 Range/Units 14:05 PT 10.3 (9.8-11.6) sec APTT 27.3 (23.4-31.7) sec CBC 04/11/18 Range/Units 14:05 WBC 4.8 (4.0-11.0) th/mm3 RBC 4.22 (4.00-5.30) mil/mm3 Hgb 12.1 (11.6-15.3) gm/dL Hct 37.3 (35.0-46.0) % Plt Count 244 (150-450) th/mm3 Neut # (Auto) 2.8 (1.8-7.7) th/mm3 Lymph # (Auto) 1.3 (1.0-4.8) th/mm3 [place] # (Auto) 0.5 (0.0-0.9) th/mm3 Eos # (Auto) 0.1 (0.0-0.4) th/mm3 Baso # (Auto) 0.0 (0.0-0.2) th/mm3 Comprehensive Metabolic Panel 04/11/18 Range/Units 14:05 Sodium 143 (136-145) meq/L Potassium 3.6 (3.5-5.1) meq/L Chloride 107 (98-107) meq/L Carbon Dioxide 30.0 (21.0-32.0) meq/L BUN 8 (7-18) mg/dL Creatinine 0.68 (0.50-1.00) mg/dL Calcium 9.3 (8.5-10.1) mg/dL AST 28 (15-37) U/L ALT 28 (10-53) U/L Alkaline Phosphatase 127 H (45-117) U/L Total Protein 8.6 H (6.4-8.2) g/dL Albumin 3.5 (3.4-5.0) g/dL Intake and Output 04/11/18 04/12/18 04/12/18 22:59 06:59 14:59 Other: # Voids 3 - Imaging and Cardiology Imaging: Impressions Chest X-Ray 04/11/18 00:00 CONCLUSION: No acute cardiopulmonary disease. Chest X-Ray 04/11/18 14:04 CONCLUSION: Underinflation with mild opacity at the left base that is favored to represent subsegmental atelectasis and density relating to overlying soft tissues. However , cannot confidently exclude mild airspace consolidation. Good inspiratory formal PA and lateral views of the chest could help differentiate, if needed clinically. Assessment and Plan - Assessment (1) Chest pain Code(s): R07.9 - Chest pain, unspecified Status: Acute Plan: Monitor on telemetry overnight. ACS ruled out with standard protocol. Previously seen and evaluated by Dr. Hines. Proceed with Lexiscan this a.m. If unremarkable, plan is to discharge home with follow-up with primary care provider. (2) Hypertension Code(s): I10 - Essential (primary) hypertension Status: Chronic Plan: Continue enalapril. Discussed importance of tight blood pressure control. (3) Hyperlipidemia Code(s): E78.5 - Hyperlipidemia, unspecified Status: Chronic Plan: Continue pravastatin. (4) Rheumatoid arthritis Code(s): M06.9 - Rheumatoid arthritis, unspecified Status: Chronic Plan: Follow-up with primary care provider upon discharge is previously instructed. - Plan * Chest pain: Patient will continue to have serial cardiac enzymes and EKGs for ruling out purposes. She will be seen by Dr. Hines of cardiology and the chest pain center. Symptoms seem atypical. However she does have risk factors , patient likely to have stress test in the morning which would be a Lexiscan as she would not build walk on a treadmill. She would be discharged home if her stress test is nonischemic with instructions to follow-up with her PCP. * Hypertension: Patient did not take her medicine this morning. This will be restarted. * Hyperlipidemia: Continue medication. * Rheumatoid arthritis: Patient advised to follow-up with PCP to be restarted on medication for rheumatoid arthritis. She may need follow-up with a seed laboratory assistant. Patient is stable at this time. She is agreeable to this plan. (1) Chest pain Qualifiers: Chest pain type: unspecified Qualified Code(s): R07.9 - Chest pain, unspecified (2) Hypertension Qualifiers: Hypertension type: unspecified Qualified Code(s): I10 - Essential (primary) hypertension (3) Hyperlipidemia Qualifiers: Hyperlipidemia type: unspecified Qualified Code(s): E78.5 - Hyperlipidemia, unspecified (4) Rheumatoid arthritis Qualifiers: Rheumatoid arthritis location: unspecified site
[2018-04-12] MEDS ORDERED: Folic Acid 1 MG Tablet PO SCH (09:00)
[2018-04-12] MEDS ORDERED: Loratadine 10 MG Tablet PO SCH (09:00)
[2018-04-12] MEDS ORDERED: predniSONE 5 MG Tablet PO SCH (09:00)
[2018-04-12] MEDS ORDERED: Sertraline 50 MG Tablet PO SCH (09:00)
[2018-04-12] MEDS ORDERED: Pantoprazole Sodium 20 MG DR Tablet PO SCH (10:15)
[2018-04-12] MEDS ORDERED: Regadenoson Inj 0.4 MG/5 ML Syringe IV.PUSH ONE (10:23)
--- NOTE | 2018-04-12 11:45 | NM ---
EXAM DATE: 04/12/2018 11:40 AM EST AGE/SEX: 62 years / Female INDICATIONS:Angina. . Chest pain. CLINICAL DATA: This is the patient's initial encounter. Patient reports that signs and symptoms have been present for 1 day and indicates a pain score of 2/10. MEDICAL/SURGICAL HISTORY: Hypertension. None. COMPARISON: No prior exams available for comparison. DOSE: 8.7 mCi Tc 99m Myoview at rest 27.0 mCi [id number] at stress 0.4 mg Lexiscan STRESS SYMPTOMS: Shortness of breath. EJECTION FRACTION: 64 % TECHNIQUE: The patient underwent pharmacologic stress with infusion of prescribed dose. Continuous ECG tracing was monitored during stress. Gated SPECT imaging was performed after stress and conventi onal SPECT imaging was performed at rest. The examination was performed on a SPECT/CT scanner, both attenuation and non-corrected datasets were reviewed. FINDINGS: Distribution: The maximum perfused segment at stress is in the anterior lateral wall. Perfusion Study: The pattern of perfusion at stress is within normal limits. Gated Study: There are intact wall motion and wall thickening without hypokinetic or dyskinetic segm ents. The ejection fraction is calculated at 64%. RISK CATEGORY: Low (<1% Annual Motality Rate) CONCLUSION: 1. Negative for stress-induced ischemia Electronically signed by: Ted Mccray MD Board Certified Radiologist 04/12/2018 11:44 AM EST
[2018-04-12 11:54] VITALS: BP 136/63; PULSE 80; TEMP 97.7; O2SAT 98
--- NOTE | 2018-04-12 15:04 | ECG ---
Date Performed: 04/11/2018 Time Performed: 20:08:04 PTAGE: 62 years EKG: Sinus rhythm NONSPECIFIC T-WAVE ABNORMALITY BORDERLINE ECG PREVIOUS TRACING : 04/11/2018 17.34 Since previous tracing, no significant change noted DOCTOR: eJan Koehler Interpretating Date/Time 04/12/2018 15:02:45
--- NOTE | 2018-04-12 15:05 | ECG ---
Date Performed: 04/11/2018 Time Performed: 17:34:37 PTAGE: 62 years EKG: Sinus rhythm NORMAL ECG PREVIOUS TRACING : 04/11/2018 13.24 Since previous tracing, no significant change noted DOCTOR: Jean Koehler Interpretating Date/Time 04/12/2018 15:03:24
--- NOTE | 2018-04-12 15:06 | ECG ---
Date Performed: 04/11/2018 Time Performed: 13:24:30 PTAGE: 62 years EKG: Sinus rhythm NORMAL ECG PREVIOUS TRACING : 02/08/2014 10.03 Since previous tracing, no significant change noted DOCTOR: Jean Koehler Interpretating Date/Time 04/12/2018 15:04:28
--- NOTE | 2018-04-12 15:09 | TR ---
Date Performed: 04/12/2018 Time Performed: 10:33:45 DOCTOR: Jean Koehler DRUG LIST: VASOTEC ProTONIX CLINICAL HISTORY: HTN DVT CHEST PAIN REASON FOR TEST: REASON FOR ENDING: OBSERVATION: CONCLUSION: COMMENTS: Lexiscan stress test was performed under standard four minute protocol. Radionuclide was injected one minute prior to ending the test. No electrocardiographic abormalities were present t o suggest ischemia. Nuclear imaging and interpretation are pending.
[2018-04-13] MEDS ORDERED: Pantoprazole Sodium 20 MG DR Tablet PO SCH (09:00)
== END 2018-04-12 17:38 | disposition home or self-care (01) ==
LOC: NEPC 12:55 → NEDA 12:55 → NEPHCDU 16:56
PROVIDERS: ADMIT Internal Medicine Interventional Cardiology; ATTEND Internal Medicine Interventional Cardiology